=== PATIENT | male | born 1975 | race Caucasian/White ===

== ENCOUNTER → 2020-08-22 | Outpatient (CLI) | payer BC, OTHER ==
[~2020-08-22] MED LIST: B12 ACTIVE1000 MCG PO; IBUPROFEN600 MG PO; LISINOPRIL10 MG PO; METHOCARBAMOL500 MG PO; OXYCODONE HCL5 MG PO; SAW PALMETTO450 MG PO
[2020-08-22 09:36] LABS: HEMOGLOBIN 16.9 gm/dl (14.0-17.5); RED BLOOD COUNT 5.58 M/UL (4.20-5.50); WHITE BLOOD COUNT 9.8 K/UL (4.5-11.0)
[2020-08-22 10:14] LABS: BUN/CREATININE RATIO 12 (0-10)
== END ==
LOC: LAB 08:30
PROVIDERS: Nurse Practitioner Family
DX: Z00.00 Encounter for general adult medical examination without abnormal findings (principal); R73.9 Hyperglycemia, unspecified; E78.5 Hyperlipidemia, unspecified; I10 Essential (primary) hypertension; R53.83 Other fatigue; E53.8 Deficiency of other specified B group vitamins; E55.9 Vitamin D deficiency, unspecified
CPT/HCPCS: 36415; 80053; 80061; 82607; 83036; 84439; 84443; 85025

== ENCOUNTER → 2020-09-19 | Outpatient (CLI) | payer BC, OTHER | LOC: KOH-I 09-12 09:45 → MRI 09:31 → KOH-I 09:45 → MRI 09:45 → KOH-I 11:15 | DX: M47.22 Other spondylosis with radiculopathy, cervical region (principal); R29.2 Abnormal reflex; M48.062 Spinal stenosis, lumbar region with neurogenic claudication | CPT/HCPCS: 72141 ==

== ENCOUNTER → 2020-12-26 | Outpatient (CLI) | payer BC, OTHER | LOC: KOH-I 08:07 | DX: M50.122 Cervical disc disorder at C5-C6 level with radiculopathy (principal); M46.02 Spinal enthesopathy, cervical region; M48.02 Spinal stenosis, cervical region | CPT/HCPCS: 72125 ==

== ENCOUNTER → 2020-12-26 | Outpatient (CLI) | payer BC, OTHER ==
[2020-12-26 10:15] LABS: HEMOGLOBIN 15.8 gm/dl (14.0-17.5); RED BLOOD COUNT 5.26 M/UL (4.20-5.50); WHITE BLOOD COUNT 8.1 K/UL (4.5-11.0)
[2020-12-26 10:44] LABS: BUN/CREATININE RATIO 14 (0-10)
[2020-12-27 11:14] LABS: CREATININE, URINE 207.7 mg/dL (Not Estab.)
== END ==
LOC: LAB 08:57
PROVIDERS: Nurse Practitioner Family
DX: Z00.00 Encounter for general adult medical examination without abnormal findings (principal); R73.9 Hyperglycemia, unspecified; I10 Essential (primary) hypertension; E78.5 Hyperlipidemia, unspecified; R53.83 Other fatigue; E53.8 Deficiency of other specified B group vitamins; E55.9 Vitamin D deficiency, unspecified
CPT/HCPCS: 36415; 80053; 80061; 82043; 82570; 82607; 83036; 84439; 84443; 85025

== ENCOUNTER → 2021-01-09 | Outpatient (CLI) | payer BC, OTHER ==
[2021-01-09 09:40] LABS: HEMOGLOBIN 16.3 gm/dl (14.0-17.5); RED BLOOD COUNT 5.4 M/UL (4.20-5.50); WHITE BLOOD COUNT 7.8 K/UL (4.5-11.0)
[2021-01-09 10:06] LABS: BUN/CREATININE RATIO 16 (0-10)
== END ==
LOC: OPSV2 08:29 → EDSTATUS 09:00
PROVIDERS: Orthopaedic Surgery
DX: Z01.818 Encounter for other preprocedural examination (principal); M54.12 Radiculopathy, cervical region
CPT/HCPCS: 71046; 80048; 85027; 85610; 85730; 87077; 87081; 87086; 87186; 93005

== ENCOUNTER → 2021-01-17 | Outpatient (CLI) | payer BC, OTHER | LOC: LAB 12:45 | PROVIDERS: Orthopaedic Surgery | DX: Z01.812 Encounter for preprocedural laboratory examination (principal); M54.2 Cervicalgia | CPT/HCPCS: 80048; 86850; 86900; 86901 ==

== ENCOUNTER 2021-01-18 06:10 | Day surgery (SDC) | payer BC, OTHER ==
[~2021-01-18] VITALS: Ht 167.6 cm; Wt 87.1 kg
[2021-01-18] MEDS ORDERED: LISINOPRIL10 MG PO (07:46)
[2021-01-18] MEDS ORDERED: IBUPROFEN600 MG PO (07:47)
[2021-01-18] MEDS ORDERED: B12 ACTIVE1000 MCG PO (07:48)
[2021-01-18] MEDS ORDERED: METHOCARBAMOL500 MG PO (07:49)
[2021-01-18] MEDS ORDERED: SAW PALMETTO450 MG PO (07:49)
[2021-01-18 15:21] LABS: HEMOGLOBIN 13.5 gm/dl (14.0-17.5); RED BLOOD COUNT 4.48 M/UL (4.20-5.50); WHITE BLOOD COUNT 10.7 K/UL (4.5-11.0)
[2021-01-19 04:09] LABS: HEMOGLOBIN 13.7 gm/dl (14.0-17.5); RED BLOOD COUNT 4.55 M/UL (4.20-5.50); WHITE BLOOD COUNT 11.2 K/UL (4.5-11.0)
[2021-01-19] MEDS ORDERED: OXYCODONE HCL5 MG PO (11:02)
== END 2021-01-19 12:06 | disposition home or self-care (01) ==
LOC: OR 06:10 → CCU 06:10 → OR 09:00 → CCU 16:44 → OR 01-19 12:06
PROVIDERS: Orthopaedic Surgery
DX: M47.22 Other spondylosis with radiculopathy, cervical region (principal); M50.121 Cervical disc disorder at C4-C5 level with radiculopathy; M48.02 Spinal stenosis, cervical region; I10 Essential (primary) hypertension; E78.5 Hyperlipidemia, unspecified; F31.9 Bipolar disorder, unspecified; F41.9 Anxiety disorder, unspecified; Z87.891 Personal history of nicotine dependence; Z79.1 Long term (current) use of non-steroidal anti-inflammatories (NSAID); Z79.899 Other long term (current) drug therapy; Z20.822 Contact with and (suspected) exposure to COVID-19
CPT/HCPCS: 36415; 72040; 72050; 76000; 80048; 82962; 85027; C1713; C1762; C1781; J0690; J1040; J1100; J1885; J2001; J2250; J2370; J2405; J2704; J2710; J3010; J3370; J7040; J7120; U0002

== ENCOUNTER → 2021-09-06 | Outpatient (CLI) | payer BC ==
[2021-09-06 06:56] LABS: RED BLOOD COUNT 5.03 M/UL (4.20-5.50); WHITE BLOOD COUNT 6.5 K/UL (4.5-11.0)
[2021-09-06 07:18] LABS: BUN/CREATININE RATIO 15 (0-10)
[2021-09-07 07:11] LABS: ANTISTREPTOLYSIN O AB 27.6 IU/mL (0.0-200.0); RHEUMATOID ARTHRITIS FACTOR <10.0 IU/mL (<14.0)
[2021-09-07 08:15] LABS: SARS COV-2 SEMI-QUANT IGG <13.0 AU/mL (Neg <13.0); SARS COV-2 SPIKE AB INTERP Negative (.); VITAMIN D, 25-HYDROXY 25.3 ng/mL (30.0-100.0)
[2021-09-07 14:13] LABS: SARS COV-2 IGM AB Negative (Negative)
== END ==
LOC: LAB 06:26
PROVIDERS: Nurse Practitioner Family
DX: M48.02 Spinal stenosis, cervical region (principal); M54.2 Cervicalgia; R06.02 Shortness of breath; M25.50 Pain in unspecified joint; I10 Essential (primary) hypertension; K21.9 Gastro-esophageal reflux disease without esophagitis; R73.9 Hyperglycemia, unspecified; E78.5 Hyperlipidemia, unspecified; N40.1 Benign prostatic hyperplasia with lower urinary tract symptoms; R33.8 Other retention of urine; R53.83 Other fatigue; E53.8 Deficiency of other specified B group vitamins; E55.9 Vitamin D deficiency, unspecified; R05.9 Cough, unspecified; Z01.84 Encounter for antibody response examination; Z20.822 Contact with and (suspected) exposure to COVID-19; Z98.1 Arthrodesis status
CPT/HCPCS: 36415; 71046; 72040; 80053; 80061; 82607; 84153; 84439; 84443; 84550; 85025; 85652; 86038; 86060; 86141; 86431; 86769

== ENCOUNTER → 2021-10-02 | Outpatient (CLI) | payer BC | LOC: KOH-I 09:00 | DX: M47.22 Other spondylosis with radiculopathy, cervical region (principal); Z98.890 Other specified postprocedural states; R29.2 Abnormal reflex | CPT/HCPCS: 72141 ==